=== PATIENT | female | born 1995 | race Caucasian/White ===

== ENCOUNTER 2017-05-07 05:47 | Inpatient (IN) | payer MEDICAID, SELFPAY ==
[2017-05-07] MEDS ORDERED: Penicillin G Potassium 5 MILLUNITS in Sodium Chloride 0.9% 100 ML IV SCH (06:00)
[2017-05-07] MEDS ORDERED: Sodium Chloride 0.9% 10 ML Syringe FLUSH PRN (06:17)
[2017-05-07] MEDS ORDERED: Oxytocin/Lactated Ringers 10 UNIT/1,000 ML BAG IV SCH ×2 (06:30→12:45)
[2017-05-07] MEDS: Lactated Ringers 1,000 ML IV SCH ×6 (07:30→23:00)
[2017-05-07] MEDS ORDERED: fentaNYL 100 MCG/2 ML SDV ONE (08:56)
[2017-05-07] MEDS: Nalbuphine 20 MG/1 ML Amp ONE ×2 (09:05→16:52)
[2017-05-07] MEDS ORDERED: Nalbuphine 20 MG/1 ML Amp IVPUSH ONE (09:06)
[2017-05-07] MEDS ORDERED: fentaNYL 100 MCG/2 ML SDV EPIDUR PRN (09:27)
[2017-05-07] MEDS ORDERED: ePHEDrine 50 MG/ML SDV IVPUSH PRN (09:27)
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
[2017-05-07] MEDS: Bupivacaine/fentaNYL/NS 100 ML Bag EPIDUR SCH ×2 (10:15→22:23)
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
[2017-05-07] MEDS: Penicillin G Potassium 2.5 MILLUNITS in Sodium Chloride 0.9% 100 ML IV SCH ×3 (11:30→20:30)
[2017-05-07] MEDS ORDERED: Ondansetron 4 MG/2 ML SDV IVPUSH PRN (12:40)
[2017-05-07] MEDS: diphenhydrAMINE 50 MG/ML SDV IVPUSH PRN ×2 (14:44→22:23)
[2017-05-07] MEDS ORDERED: Lactated Ringers 1,000 ML IV SCH (22:34)
[2017-05-07] MEDS ORDERED: Sodium Chloride 0.9% 1,000 ML IRR PRN (23:20)
[2017-05-07] MEDS ORDERED: Sodium Chloride 0.9% 1,000 ML ONE (23:28)
[2017-05-07] MEDS: Sodium Chloride 0.9% 1,000 ML IRR PRN (23:43)
[2017-05-08] MEDS ORDERED: Penicillin G Potassium 2.5 MILLUNITS in Sodium Chloride 0.9% 100 ML IV SCH (02:30)
[2017-05-08] MEDS: Lactated Ringers 1,000 ML IV SCH (02:43)
[2017-05-08] MEDS: Bupivacaine/fentaNYL/NS 100 ML Bag EPIDUR SCH (04:50)
[2017-05-08] MEDS ORDERED: Citric Acid/Sodium Citrate Solution 30 ML Cup ONE (05:05)
[2017-05-08] MEDS ORDERED: Metoclopramide 10 MG/2 ML SDV ONE (05:05)
--- NOTE | 2017-05-08 05:11 | PCM.SN ---
- Free Text/Narrative Note: Jacqueline has been laboring all night. She is elementary pressure transducer and identifying the what appears to be adequate labor. She is progressed to 6 cm/100 % effacement/-2 station. She however is not passed beyond this despite adequate labor. heart tones are showing repetitive variable decelerations on occasion but variability has been good throughout the night. She has also had some early decelerations. At this time patient appears to have failed to progress. Decision made to proceed with sitting section. The procedure, risks, benefits, alternatives of care including continued labor are discussed in detail the patient. She appears to understand, agrees with the plan and wishes to proceed. Consent has been signed. Patient has had some mild very light meconium-stained amniotic fluid. She has had an amnioinfusion in place which is felt to have helped with some of the variable decelerations. Fluid that is coming from the cervix is clear at this time. Dr. Corrales-insurance producer will be in attendance. Assessment: 1. Term -failure to progress 2. History of previous section Plan: 1. Repeat lower uterine segment transverse section through Pfannenstiel scar. Procedure, risks, benefits, alternatives of care and follow- up discussed with patient. 2. Patient has had nausea with codeine and some itching also. She has had no problems other than some mild nausea with Percocet. She is accepting of Percocet for postoperative pain relief. 3. Ancef 3 g IV preop for infection prophylaxis 4. Laboratory tests been done. 5. Reglan and Bicitra prior to surgery.
[2017-05-08] MEDS ORDERED: Metoclopramide 10 MG/2 ML SDV IVPUSH ONE (05:12)
[2017-05-08] MEDS ORDERED: ceFAZolin 2 GM in Premix Bag 1 BAG IV ONE (05:12)
[2017-05-08] MEDS ORDERED: Citric Acid/Sodium Citrate Solution 30 ML Cup PO ONE (05:12)
[2017-05-08] MEDS ORDERED: Bupivacaine 0.5% 30 ML SDV ONE (05:25)
[2017-05-08] MEDS ORDERED: ceFAZolin 1 GM Vial ONE (05:30)
[2017-05-08] MEDS ORDERED: Morphine PF 10 MG/10 ML SDV ONE (05:30)
[2017-05-08] MEDS ORDERED: Lidocaine 2% with EPINEPHrine 1:200,000 20 ML SDV ONE (05:56)
[2017-05-08] MEDS ORDERED: Oxytocin 10 Units/1 ML SDV ONE ×2 (06:07→06:15)
[2017-05-08] MEDS ORDERED: Ondansetron 4 MG/2 ML SDV ONE (06:16)
--- NOTE | 2017-05-08 06:49 | PCM.OPNOTE ---
- General Post-Op/Procedure Note Date of Surgery/Procedure: 05/08/17 Operative Procedure(s): Repeat lower uterine segment transverse section through Pfannenstiel skin incision Findings: Mild omental adhesions to the anterior abdominal wall. Lower uterine segment approximately 3 mm thick. Uterus tubes and ovaries within normal limits for term . Baby and vertex presentation but not descended well into the pelvis. Nuchal cord 1. Occiput posterior position. Pre Op Diagnosis: 40-0/7 week intrauterine , failure to progress, history of previous section with failed Post-Op Diagnosis: Same with delivery of viable 7 lbs. 8 oz. male infant with Apgars of 9 and 9 at 0559 hrs. on 05/08/2017 Anesthesia Technique: Epidural Other Anesthesia Type: Local with Marcaine 0.5%20 mL Primary Surgeon: Jewel Crespo Secondary Surgeon: Cameron Angel Anesthesia Provider: Karri Licona Catalogue Compiler: Taryn Maldonado Fluid Replacement, Intraop: 1,900 Output, Urine Amount: 300 EBL in mLs: 750 Drain/Tube Comments:: Indwelling bladder catheter Complications: None Condition: Good Free Text/Narrative:: Surgery duration: 41 minutes Complications: None Procedure:Patient was transferred the room and placed in a sitting position. Patient already had an epidural in place. This was bolstered to anesthetic effect After confirmation of adequate anesthesia patient was placed in a supine position with a wedge under her right side to facilitate left lateral positioning. The patient was prepped and draped in usual fashion after Flanagan catheter was already placed . The anesthetic was checked and found to be adequate. The Pfannenstiel skin incision was then made carried down to skin subcutaneous and fascial layers. The fascia was then undermined superiorly and inferiorly to allow for adequate operating room the recti muscles midline and preperitoneal fat was bluntly dissected. Peritoneal cavity was entered longitudinally. Small omental adhesion on the left side was taken down with sharp dissection. No bleeding was encountered. The vesicouterine peritoneum was then incised transversely and bladder flap was developed. Myometrium was incised transversely to the level of the amniotic sac. This incision was extended bilaterally in a blunt fashion. The amniotic sac was then ruptured resulting clear amniotic fluid. A hand is placed and low uterine segment and the baby's head was brought forth through the incision. The baby was completely delivered using fundal pressure in a routine fashion. The nose and mouth were bulb suctioned. Babys cord was clamped x2 cut and baby was handed off to attending cyber systems engineer Dr Corrales. Placenta was expressed after cord blood was obtained. Uterus was then exteriorized to allow for easier closure. The cervix was assessed and found to be dilated adequately to allow egress of blood. The uterus was closed in 2 layers. The first layer a running locked suture of 0 Monocryl, the second layer a running locked vertical mattress suture of 0 Monocryl. [id number] suture was placed at mid incision 2 to control a bleeder. Hemostasis confirmed at this time. Sponge instrument needle counts are correct. The uterus was returned to the abdominal cavity and lateral gutters were cleared of blood. Once again sponge needle counts are correct. The anterior abdominal wall was closed with a #1 PDS suture from angle to angle. The subcutaneous area was freed up somewhat using cautery and then was found to be free of any bleeders. Skin was closed with a running subcuticular stitch of 3-0 Monocryl in a vertical mattress suture fashion using a Franky needle. Prineo mesh/glue was then applied to further approximate the incision. It should be noted that patient received 2 g of Ancef preoperatively for infection prophylaxis and had Pitocin infused after delivery of the placenta to facilitate uterine contraction. She also had sequential compression stockings in place for DVT prophylaxis. Patient was discharged from the operating room in satisfactory condition.
[2017-05-08] MEDS ORDERED: Ketorolac 30 MG/ML SDV ONE (06:50)
[2017-05-08] MEDS ORDERED: diphenhydrAMINE 50 MG/ML SDV IVPUSH PRN (07:44)
[2017-05-08] MEDS ORDERED: ePHEDrine 50 MG/ML SDV IVPUSH PRN (07:44)
[2017-05-08] MEDS ORDERED: Dextrose 5%-0.45% NaCl 1,000 ML IV SCH (07:44)
[2017-05-08] MEDS ORDERED: Docusate Sodium 100 MG Cap PO PRN (07:44)
[2017-05-08] MEDS ORDERED: Ondansetron 4 MG/2 ML SDV IV PRN (07:44)
[2017-05-08] MEDS ORDERED: Naloxone 0.4 MG/ML SDV IVPUSH PRN (07:44)
[2017-05-08] MEDS ORDERED: Dextrose 5%-Lactated Ringers 1,000 ML IV SCH (07:44)
[2017-05-08] MEDS ORDERED: Lanolin 100% Cream 7 GM Tube TOP PRN (07:44)
[2017-05-08] MEDS: Sodium Chloride 0.9% 1,000 ML IRR PRN (07:53)
[2017-05-08] MEDS: Simethicone 80 MG Tab.Chew PO SCH ×5 (09:26→21:53)
[2017-05-08] MEDS: Acetaminophen/oxyCODONE 325-5 MG Tab PO PRN ×4 (09:26→23:49)
[2017-05-08] MEDS: Ibuprofen 800 MG Tab PO SCH ×2 (12:02→21:17)
[2017-05-08] MEDS ORDERED: Ranitidine 15 MG/ML Syrup 10 ML UD Cup PO PRN (22:03)
[2017-05-08] MEDS ORDERED: Calcium Carbonate 500 MG Tab.Chew PO PRN (23:09)
[2017-05-08] MEDS ORDERED: Lactated Ringers 1,000 ML IV SCH (23:45)
[2017-05-09] MEDS ORDERED: diphenhydrAMINE 25 MG Cap PO PRN (02:42)
[2017-05-09] MEDS: Acetaminophen/oxyCODONE 325-5 MG Tab PO PRN ×2 (04:16→10:46)
[2017-05-09] MEDS: Ibuprofen 800 MG Tab PO SCH (04:16)
--- NOTE | 2017-05-09 10:45 | PCM.DCSUM1 ---
Discharge Summary - Hospital Course Free Text/Narrative:: Jacqueline is a 22-year-old multigravida white female who is 1 day postop from a repeat section done for failed and failure to progress. A 7 lbs. 8 oz. male infant with Apgars of 9 and 9 at 0559 hours on 05/08/2017. Patient had mild omental adhesions to the anterior abdominal wall, lower uterine segment is approximately 3 mm thick. Uterus tubes and ovaries otherwise within normal limits. Baby is in a vertex presentation but did not descend well into the pelvis. The baby was in occiput posterior position and had nuchal cord 1. Patient is demanding to be discharged today. She says she misses her 1-year-old child and not stay in the hospital without the ability to smoke. She is actually snaked outside one time this a.m. without the nurses knowing to have a cigarette. Vital signs stable. Patient is afebrile. She is ambulating well. She is tolerating a regular diet. Pain is well controlled with oral analgesic. She will be discharged as I suspect if discharge is not given she will leave AMA. - Discharge Data Discharge Date: 05/09/17 Discharge Disposition: Home, Self-Care 01 Condition: Good - Patient Summary/Data Operative Procedure(s) Performed: Repeat lower uterine segment transverse section through Pfannenstiel skin incision - Patient Instructions Diet: Regular Diet as Tolerated (Nursing diet with increase calories and calcium discussed with patient.) Activity: As Tolerated (No intercourse or tampons 4 weeks. No lifting greater than 15 pounds or driving a car 5-7 days.) Driving: Do Not Drive Showering/Bathing: May Shower Wound/Incision Care: Keep Operative Site/Wound Site Clean and Dry Notify Provider of: Fever, Increased Pain, Swelling and Redness, Drainage, Nausea and/or Vomiting - Discharge Plan Home Medications: Home Meds Acetaminophen/oxyCODONE [Percocet 325-5 MG] 2 tab PO Q4H PRN #30 tablet [Rx] Ibuprofen [IJD: Ibuprofen] 600 mg PO Q4H PRN #30 tablet 05/09/17 [Rx] Patient Handouts: Exclusive , Cannabis Use Disorder, Home Care Instructions for Mom, Eating Plan for Women - Patient Data Vitals - Most Recent: Last Vital Signs Temp 36.3 C 05/09/17 03:13 Pulse 84 05/09/17 03:13 Resp 18 05/09/17 03:13 BP 123/76 05/09/17 03:13 Pulse Ox 95 05/09/17 03:13 Weight - Most Recent: 104.961 kg I&O - Last 24 hours: Intake & Output 05/08/17 05/09/17 05/09/17 22:59 06:59 14:59 Intake Total 420 Output Total 870 Balance -450 Lab Results - Last 24 hrs: Laboratory Results - last 24 hr 05/09/17 Range/Units 06:25 WBC 16.95 H (3.98-10.04) K/mm3 RBC 3.51 L (3.98-5.22) M/mm3 Hgb 10.9 L (11.2-15.7) gm/L Hct 32.7 L (34.1-44.9) % MCV 93.2 (79.4-94.8) fl MCH 31.1 (25.6-32.2) pg MCHC 33.3 (32.2-35.5) g/dl RDW Std Deviation 46.1 (36.4-46.3) fL Plt Count 209 (182-369) K/mm3 MPV 10.9 (9.4-12.3) fl Neut % (Auto) 76.0 H (34.0-71.1) % Lymph % (Auto) 14.6 L (19.3-51.7) % [place] % (Auto) 6.8 (4.7-12.5) % Eos % (Auto) 2.1 (0.7-5.8) Baso % (Auto) 0.2 (0.1-1.2) % Neut # (Auto) 12.89 H (1.56-6.13) K/mm3 Lymph # (Auto) 2.47 (1.18-3.74) K/mm3 [place] # (Auto) 1.15 H (0.24-0.36) K/mm3 Eos # (Auto) 0.36 (0.04-0.36) K/mm3 Baso # (Auto) 0.03 (0.01-0.08) K/mm3 Med Orders - Current: Current Medications Calcium Carbonate/Glycine (Tums) 1,000 mg PO Q2HR PRN PRN Reason: Indigestion Last Admin: 05/08/17 23:23 Dose: 1,000 mg Diphenhydramine HCl (Benadryl) 25 mg IVPUSH Q6H PRN PRN Reason: Itching or Nausea Last Admin: 05/08/17 12:03 Dose: 25 mg Diphenhydramine HCl (Benadryl) 25 mg PO Q6H PRN PRN Reason: Itching Last Admin: 05/09/17 05:13 Dose: 25 mg Docusate Sodium (Colace) 100 mg PO Q12H PRN PRN Reason: Constipation Emollient Ointment (Lansinoh Hpa) 0 gm TOP ASDIRECTED PRN PRN Reason: Sore Nipples Ephedrine Sulfate (Ephedrine Sulfate) 5 mg IVPUSH ASDIRECTED PRN PRN Reason: HYPOTENTSION Last Admin: 05/07/17 10:30 Dose: 5 mg Ephedrine Sulfate (Ephedrine Sulfate) 5 mg IVPUSH SEECOMMENT PRN PRN Reason: Other Dextrose/Sodium Chloride (Dextrose 5%-1/2 Ns) 1,000 mls @ 125 mls/hr IV ASDIRECTED MARA Ibuprofen (Motrin) 800 mg PO Q8H [facility] Last Admin: 05/09/17 04:16 Dose: 800 mg Naloxone HCl (Narcan) 0.1 mg IVPUSH SEECOMMENT PRN PRN Reason: Respiratory Depression Ondansetron HCl (Zofran) 4 mg IV Q4H PRN PRN Reason: Nausea/Vomiting Oxycodone/Acetaminophen (Percocet 325-5 Mg) 2 tab PO Q4H PRN PRN Reason: Pain (moderate 4-6) Last Admin: 05/09/17 04:16 Dose: 2 tab Ranitidine HCl (Zantac) 150 mg PO BID PRN PRN Reason: Heartburn Simethicone (Simethicone) 80 mg PO PCBED [facility] Last Admin: 05/08/17 21:53 Dose: 80 mg Discontinued Medications Bupivacaine HCl (Marcaine 0.5%) Confirm Administered Dose 30 ml .ROUTE .STK-MED ONE Stop: 05/08/17 05:26 Cefazolin Sodium (Ancef) Confirm Administered Dose 2 gm .ROUTE .STK-MED ONE Stop: 05/08/17 05:31 Citric Acid/Sodium Citrate (Bicitra Solution) Confirm Administered Dose 30 ml .ROUTE .STK-MED ONE Stop: 05/08/17 05:06 Last Admin: 05/08/17 05:19 Dose: Not Given Citric Acid/Sodium Citrate (Bicitra Solution) 30 ml PO ONETIME ONE Stop: 05/08/17 05:13 Last Admin: 05/08/17 05:15 Dose: 30 ml Diphenhydramine HCl (Benadryl) 25 mg IVPUSH Q6H PRN PRN Reason: Itching Last Admin: 05/07/17 22:23 Dose: 25 mg Fentanyl (Sublimaze) Confirm Administered Dose 100 mcg .ROUTE .[email or web address] ONE Stop: 05/07/17 08:57 Last Admin: 05/07/17 16:52 Dose: Not Given Fentanyl (Sublimaze) 100 mcg EPIDUR Q3H PRN PRN Reason: PAIN Last Admin: 05/07/17 10:14 Dose: 100 mcg Fentanyl/Bupivacaine HCl (Fentanyl/Bupivacaine/Ns 2 Mcg-0.125% 100 Ml) 100 ml EPIDUR ASDIRECTED MARA Last Admin: 05/08/17 04:50 Dose: 100 ml Lactated Ringer's (Ringers, Lactated) 1,000 mls @ 100 mls/hr IV ASDIRECTED MARA Last Admin: 05/07/17 21:00 Dose: 100 mls/hr Oxytocin/Lactated Ringer's (Pitocin In Lr 10 Units/1,000 Ml) 10 unit in 1,000 mls @ 500 mls/hr IV .CONTINUOUS MARA Penicillin G Potassium 2.5 (millunits/ Sodium Chloride) 100 mls @ 55 mls/hr IV Q4H MARA Last Admin: 05/07/17 20:30 Dose: 55 mls/hr Penicillin G Potassium 5 (millunits/ Sodium Chloride) 100 mls @ 55 mls/hr IV ONETIME MARA Last Admin: 05/07/17 07:30 Dose: 55 mls/hr Oxytocin/Lactated Ringer's (Pitocin In Lr 10 Units/1,000 Ml) 10 unit in 1,000 mls @ 12 mls/hr IV TITRATE MARA; 2 MUNITS/MIN PRN Reason: Protocol Last Titration: 05/08/17 01:35 Dose: 2 munits/min, 12 mls/hr Lactated Ringer's (Ringers, Lactated) 1,000 mls @ 100 mls/hr IV ASDIRECTED MARA PRN Reason: Protocol Stop: 05/07/17 23:59 Last Admin: 05/07/17 22:46 Dose: 100 mls/hr Sodium Chloride (Sodium Chloride 0.9%) 1,000 mls @ 100 mls/hr IRR ASDIRECTED PRN PRN Reason: for amnioinfusion Sodium Chloride (Normal Saline) 1,000 mls @ 100 mls/hr IRR ASDIRECTED PRN PRN Reason: for amnioinfusion Last Admin: 05/08/17 07:53 Dose: 500 mls/hr Sodium Chloride (Normal Saline) Confirm Administered Dose 1,000 mls @ as directed .ROUTE .STK-MED ONE Stop: 05/07/17 23:29 Last Admin: 05/07/17 23:46 Dose: Not Given Lactated Ringer's (Ringers, Lactated) 1,000 mls @ 100 mls/hr IV ASDIRECTED MARA Lactated Ringer's (Ringers, Lactated) 1,000 mls @ 100 mls/hr IV ASDIRECTED [facility] Last Admin: 05/08/17 02:43 Dose: 100 mls/hr Penicillin G Potassium 2.5 (millunits/ Sodium Chloride) 100 mls @ 55 mls/hr IV Q4H [facility] Last Admin: 05/08/17 02:35 Dose: 55 mls/hr Cefazolin Sodium/Dextrose 2 gm (/ Premix) 50 mls @ 100 mls/hr IV ONETIME ONE Stop: 05/08/17 05:41 Dextrose/Lactated Ringer's (Dextrose 5%-Lactated Ringers) 1,000 mls @ 125 mls/ hr IV ASDIRECTED MARA Stop: 05/08/17 15:43 Last Admin: 05/08/17 09:27 Dose: 125 mls/hr Ketorolac Tromethamine (Toradol) Confirm Administered Dose 30 mg .ROUTE .STK- MED ONE Stop: 05/08/17 06:51 Last Admin: 05/08/17 09:21 Dose: Not Given Lidocaine/Epinephrine (Xylocaine-Mpf 2%-Epi 1:200,000) Confirm Administered Dose 20 ml .ROUTE .STK-MED ONE Stop: 05/08/17 05:57 Metoclopramide HCl (Reglan) Confirm Administered Dose 10 mg .ROUTE .STK-MED ONE Stop: 05/08/17 05:06 Last Admin: 05/08/17 05:19 Dose: Not Given Metoclopramide HCl (Reglan) 10 mg IVPUSH ONETIME ONE Stop: 05/08/17 05:13 Last Admin: 05/08/17 05:15 Dose: 10 mg Morphine Sulfate (Duramorph Pf) Confirm Administered Dose 10 mg .ROUTE .STK-MED ONE Stop: 05/08/17 05:31 Nalbuphine HCl (Nubain) Confirm Administered Dose 20 mg .ROUTE .STK-MED ONE Stop: 05/07/17 08:59 Last Admin: 05/07/17 16:52 Dose: Not Given Nalbuphine HCl (Nubain) 10 mg IVPUSH ONETIME ONE Stop: 05/07/17 09:07 Last Admin: 05/07/17 09:00 Dose: 10 mg Ondansetron HCl (Zofran) 4 mg IVPUSH Q4H PRN PRN Reason: Nausea Last Admin: 05/07/17 12:55 Dose: 4 mg Ondansetron HCl (Zofran) Confirm Administered Dose 4 mg .ROUTE .STK-MED ONE Stop: 05/08/17 06:17 Oxytocin (Pitocin) Confirm Administered Dose 10 unit .ROUTE .STK-MED ONE Stop: 05/08/17 06:08 Oxytocin (Pitocin) Confirm Administered Dose 10 unit .ROUTE .STK-MED ONE Stop: 05/08/17 06:16 Sodium Chloride (Saline Flush) 10 ml FLUSH ASDIRECTED PRN PRN Reason: Keep Vein Open *Q Meaningful Use (DIS) - VTE *Q VTE Criteria *Q: - Stroke *Q Stroke Criteria *Q: - AMI *Q AMI Criteria *Q:
[2017-05-09] MEDS: Simethicone 80 MG Tab.Chew PO SCH (10:46)
[2017-05-14 09:25] VITALS: BP 114/70
== END 2017-05-09 11:11 | disposition home or self-care (01) | DRG 765 ==
LOC: JD.OBCHECK 05:47 → JD.OB 05:50 → JD.OBCHECK 06:17 → JD.OB 06:17 → OBSVTOIN 05-08 05:59 → JD.OB 05-08 08:10
PROVIDERS: ADMIT Obstetrics & Gynecology; ATTEND Obstetrics & Gynecology
PROC: 10D00Z1 Extraction of Products of Conception, Low, Open Approach (ICD-10-PCS; principal; 2017-05-08)
DX: O34.211 Maternal care for low transverse scar from previous cesarean delivery (principal); O99.324 Drug use complicating childbirth; O32.4XX0 Maternal care for high head at term, not applicable or unspecified; O99.334 Smoking (tobacco) complicating childbirth; O99.344 Other mental disorders complicating childbirth; O99.824 Streptococcus B carrier state complicating childbirth; O69.1XX0 Labor and delivery complicated by cord around neck, with compression, not applicable or unspecified; F41.8 Other specified anxiety disorders; F12.90 Cannabis use, unspecified, uncomplicated; F31.9 Bipolar disorder, unspecified; Z3A.39 39 weeks gestation of pregnancy; Z37.0 Single live birth; Z88.8 Allergy status to other drugs, medicaments and biological substances
CPT/HCPCS: 01961; 36415; 80306; 81001; 85025; 86850; 86900; 86901; 94762; A9270-GY; J0690; J1200; J2270; J2300; J2405; J2540; J2590; J2765; J3010; J7030; J7040; J7042; J7120

== ENCOUNTER 2017-05-12 15:49 | Emergency (ER) | payer MEDICAID ==
[2017-05-12 15:58] VITALS: BP 127/90
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
[2017-05-12] MEDS ORDERED: Cephalexin 500 MG Cap PO ONE (17:58)
== END 2017-05-12 18:20 | disposition home or self-care (01) ==
LOC: JD.ED 15:49
DX: O86.0 Infection of obstetric surgical wound (principal); L03.311 Cellulitis of abdominal wall; Z88.5 Allergy status to narcotic agent; Z91.048 Other nonmedicinal substance allergy status; Z90.49 Acquired absence of other specified parts of digestive tract
CPT/HCPCS: 36415; 80053; 85025; 99284; A9270; 99283

== ENCOUNTER 2017-09-05 13:02 | Emergency (ER) | payer MEDICAID ==
[2017-09-05 13:17] VITALS: BP 122/85
[2017-09-05] MEDS ORDERED: Lidocaine 1% 10 ML MDV INJECT ONE (13:49)
[2017-09-05] MEDS ORDERED: Diphtheria,Pertussis(Acell),Tetanus Vaccine 0.5 ML SDV IM ONE (13:49)
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
[2017-09-05] MEDS ORDERED: Ketorolac 60 MG/2 ML SDV IM ONE (14:35)
[2017-09-05] MEDS ORDERED: traMADol 50 MG Tab PO ONE (14:51)
[2017-09-05] MEDS ORDERED: LORazepam 1 MG Tab PO ONE (16:38)
[2017-09-05] MEDS ORDERED: Lidocaine 1% 10 ML MDV ONE (17:18)
--- NOTE | 2017-09-08 10:16 | CR ---
Left thumb: Three views of the left thumb were obtained. Comparison: No previous study. Joint spaces are preserved. No acute fracture or other bony abnormality is seen. No abnormal soft tissue densities are seen. Impression: 1. No acute bony abnormality is seen on left thumb study. Diagnostic code #1
== END 2017-09-05 18:00 | disposition home or self-care (01) ==
LOC: JD.ED 13:02
DX: S66.022A Laceration of long flexor muscle, fascia and tendon of left thumb at wrist and hand level, initial encounter (principal); F17.210 Nicotine dependence, cigarettes, uncomplicated; Z88.5 Allergy status to narcotic agent; W26.0XXA Contact with knife, initial encounter
CPT/HCPCS: 12001; 29125; 73140; 90471; 90715; 99284; A9270; 99283-25; J1885

== ENCOUNTER 2018-10-28 03:48 | Emergency (ER) | payer MEDICAID, SELFPAY ==
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
[2018-10-28 04:03] VITALS: BP 124/75
[2018-10-28] MEDS ORDERED: diphenhydrAMINE 50 MG/ML SDV IVPUSH ONE (04:05)
[2018-10-28] MEDS ORDERED: Metoclopramide 10 MG/2 ML SDV IVPUSH ONE (04:05)
[2018-10-28] MEDS ORDERED: Ketorolac 30 MG/ML SDV IVPUSH SCH (04:15)
[2018-10-28] MEDS ORDERED: Dextrose 5%-Lactated Ringers 1,000 ML IV SCH ×2 (04:15→05:15)
[2018-10-28] MEDS ORDERED: Ondansetron 4 MG/2 ML SDV IVPUSH ONE (06:12)
== END 2018-10-28 07:00 | disposition home or self-care (01) ==
LOC: JD.ED 03:48
DX: A08.4 Viral intestinal infection, unspecified (principal); E87.2 Acidosis; Z90.49 Acquired absence of other specified parts of digestive tract; Z98.890 Other specified postprocedural states; Z88.5 Allergy status to narcotic agent; Z88.8 Allergy status to other drugs, medicaments and biological substances; Z91.048 Other nonmedicinal substance allergy status
CPT/HCPCS: 36415; 80053; 82009; 82150; 85007; 85027; 86140; 96361; 96374; 96375; 99284; J1200; J1885; J2405; J2765; J7042

== ENCOUNTER 2019-02-13 21:11 | Emergency (ER) | payer MEDICAID ==
[2019-02-13 21:34] VITALS: BP 129/98
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
[2019-02-13] MEDS ORDERED: Iopamidol 755 Mg/ML 200 ML Bottle IV ONE (22:15)
[2019-02-13] MEDS ORDERED: Diatrizoate Meglumine/Diatrizoate Sodium 37% 120 ML Bottle PO ONE (22:15)
--- NOTE | 2019-02-15 08:06 | CT ---
CT abdomen and pelvis Technique: Multiple axial sections were obtained from above the dome of the diaphragm inferiorly through the pubic symphysis. Intravenous and oral contrast was utilized. Delayed images were obtained through the abdomen and pelvis. Comparison: Prior CT abdomen and pelvis exam of 05/21/13. Findings: Small portion of the visualized lung bases shows nothing acute. Liver shows no focal abnormality. Spleen appears within normal limits. Small nodule is noted within the left adrenal gland believed to be present on previous exam and therefore incidental. Kidneys show symmetric contrast enhancement without hydronephrosis or mass. Pancreas appears normal. Surgical clips are noted from prior cholecystectomy. Aorta shows no aneurysm. No retroperitoneal adenopathy is seen. No mesenteric abnormalities are seen. Small fat-containing umbilical hernia is noted. No pelvic mass or adenopathy is identified. Delayed images show contrast within the ureters and bladder with no contrast extravasation. Bone window settings were reviewed which show no acute osseous abnormality. Impression: 1. Incidental findings. Nothing acute is appreciated on CT study of the abdomen and pelvis. Diagnostic code #2 I agree with preliminary report from [facility], finalized on 02/14/19, 1:03 AM Central Time
== END 2019-02-14 00:47 | disposition home or self-care (01) ==
LOC: JD.ED 21:11
DX: S70.11XA Contusion of right thigh, initial encounter (principal); S30.1XXA Contusion of abdominal wall, initial encounter; Z88.8 Allergy status to other drugs, medicaments and biological substances; Z88.5 Allergy status to narcotic agent; X58.XXXA Exposure to other specified factors, initial encounter; Y04.2XXA Assault by strike against or bumped into by another person, initial encounter
CPT/HCPCS: 36415; 74177; 80053; 81001; 83690; 84703; 85025; 99284; Q9963; Q9967; 99283

== ENCOUNTER 2020-05-31 13:59 | Emergency (ER) | payer MEDICAID ==
[2020-05-31 14:13] VITALS: BP 122/85; PULSE 73
[2020-05-31] MEDS ORDERED: Clindamycin Phosphate in D5W 900 MG in Premix Bag 1 BAG IV ONE ×2 (14:34)
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
== END 2020-05-31 16:36 | disposition home or self-care (01) ==
LOC: JD.ED 13:59
DX: O86.01 Infection of obstetric surgical wound, superficial incisional site (principal); L03.311 Cellulitis of abdominal wall; Z90.49 Acquired absence of other specified parts of digestive tract; Z98.890 Other specified postprocedural states; Z88.7 Allergy status to serum and vaccine; Z91.048 Other nonmedicinal substance allergy status; Z88.5 Allergy status to narcotic agent
CPT/HCPCS: 36415; 80053; 83735; 85007; 85027; 85652; 86140; 87040; 87075; 87205; 96365; 99283-25; J3490

== ENCOUNTER 2023-02-23 21:59 | Emergency (ER) | payer MEDICAID ==
[2023-02-23 22:19] VITALS: BP 142/85; PULSE 80
== END 2023-02-23 22:42 | disposition home or self-care (01) ==
LOC: JD.ED 21:59
DX: O90.2 Hematoma of obstetric wound (principal); F17.210 Nicotine dependence, cigarettes, uncomplicated; Z88.5 Allergy status to narcotic agent; Z91.048 Other nonmedicinal substance allergy status; Z88.8 Allergy status to other drugs, medicaments and biological substances; Z79.899 Other long term (current) drug therapy
CPT/HCPCS: 99283